=== PATIENT | female | born 1975 | race Caucasian/White ===

== ENCOUNTER 2020-03-22 12:00 | Inpatient (IN) | payer MEDICAID ==
[~2020-03-22] VITALS: Ht 160 cm; Wt 65.8 kg
[2020-03-22 12:43] VITALS: Ht 160 cm; Wt 65.8 kg
[2020-03-22 14:40] LABS: ALKALINE PHOSPHATASE 81 U/L (46-116); ALT/SGPT 18 U/L (14-59); AST/SGOT 23 U/L (15-37); BILIRUBIN TOTAL 0.4 mg/dL (0.20-1.00); CALCIUM 8.4 mg/dL (8.5-10.1); CARBON DIOXIDE 28.2 mmol/L (21-32); CHLORIDE SERUM 99 mmol/L (98-107); CREATININE SERUM 0.7 mg/dL (0.6-1.0); GFR1 > 60 mL/min; GLUCOSE SERUM 327 mg/dL (74-106); SODIUM SERUM 136 mmol/L (136-145); TOTAL PROTEIN, SERUM 7.6 g/dL (6.4-8.2)
[2020-03-22 14:43] LABS: ALBUMIN 2.2 g/dL (3.4-5.0)
[2020-03-22 14:44] LABS: POTASSIUM SERUM 6.4 mmol/L (3.5-5.1)
[2020-03-22 15:01] LABS: BASOPHIL % 0.7 % (0.2-1.3); PLATELET COUNT 394 x10^3mcL (179-408)
[2020-03-22 15:27] LABS: RED CELL DISTRIBUTION WIDTH 14.8 % (12.3-17.7)
[2020-03-22 17:57] VITALS: BP 107/65
[2020-03-22 21:53] VITALS: BP 99/62
[2020-03-22 22:04] LABS: CALCIUM 7.8 mg/dL (8.5-10.1); CARBON DIOXIDE 22.5 mmol/L (21-32); CHLORIDE SERUM 102 mmol/L (98-107); CREATININE SERUM 0.5 mg/dL (0.6-1.0); GFR1 > 60 mL/min; GLUCOSE SERUM 288 mg/dL (74-106); POTASSIUM SERUM 4.1 mmol/L (3.5-5.1); SODIUM SERUM 136 mmol/L (136-145)
[2020-03-23 05:30] VITALS: BP 135/90
[2020-03-23 06:31] LABS: BASOPHIL % 0.2 % (0.2-1.3); RED CELL DISTRIBUTION WIDTH 14.4 % (12.3-17.7)
[2020-03-23 07:15] LABS: PLATELET COUNT 424 x10^3mcL (179-408)
[2020-03-23 08:00] LABS: CALCIUM 8.2 mg/dL (8.5-10.1); CARBON DIOXIDE 22.6 mmol/L (21-32); CHLORIDE SERUM 98 mmol/L (98-107); CREATININE SERUM 0.5 mg/dL (0.6-1.0); GFR1 > 60 mL/min; GLUCOSE SERUM 297 mg/dL (74-106); PHOSPHOROUS 3.1 mg/dL (2.5-4.9); POTASSIUM SERUM 4.5 mmol/L (3.5-5.1); SODIUM SERUM 131 mmol/L (136-145)
[2020-03-23 08:52] VITALS: BP 148/99
[2020-03-23 12:10] VITALS: BP 101/69
[2020-03-23 16:53] VITALS: BP 102/71
[2020-03-23 21:16] VITALS: BP 98/61
[2020-03-24 05:45] VITALS: BP 103/71
[2020-03-24 06:27] LABS: BASOPHIL % 0.8 % (0.2-1.3); CALCIUM 8.5 mg/dL (8.5-10.1); CHLORIDE SERUM 101 mmol/L (98-107); CREATININE SERUM 0.8 mg/dL (0.6-1.0); GFR1 > 60 mL/min; GLUCOSE SERUM 333 mg/dL (74-106); MAGNESIUM 1.7 mg/dL (1.8-2.4); PHOSPHOROUS 3.4 mg/dL (2.5-4.9); PLATELET COUNT 390 x10^3mcL (179-408); POTASSIUM SERUM 3.4 mmol/L (3.5-5.1); RED CELL DISTRIBUTION WIDTH 14.5 % (12.3-17.7); SODIUM SERUM 136 mmol/L (136-145)
[2020-03-24 09:00] VITALS: BP 101/66
[2020-03-24 13:00] VITALS: BP 110/78
[2020-03-24 16:54] VITALS: BP 90/57
[2020-03-24 22:05] VITALS: BP 106/76
[2020-03-25 06:52] VITALS: BP 100/67
[2020-03-25 07:43] LABS: BASOPHIL % 0.5 % (0.2-1.3)
[2020-03-25 08:04] LABS: CALCIUM 8.2 mg/dL (8.5-10.1); CARBON DIOXIDE 29.5 mmol/L (21-32); CHLORIDE SERUM 99 mmol/L (98-107); CREATININE SERUM 0.9 mg/dL (0.6-1.0); GFR1 > 60 mL/min; GLUCOSE SERUM 97 mg/dL (74-106); POTASSIUM SERUM 3.2 mmol/L (3.5-5.1); SODIUM SERUM 137 mmol/L (136-145)
[2020-03-25 08:25] VITALS: BP 109/78
[2020-03-25 10:45] LABS: PLATELET COUNT 423 x10^3mcL (179-408)
[2020-03-25 12:15] VITALS: BP 110/79
[2020-03-25] MEDS ORDERED: CIPRO500 MG PO (15:01)
== END 2020-03-25 16:46 | disposition home or self-care (01) | DRG 344 ==
LOC: ED 12:00 → DU 16:28
PROVIDERS: Emergency Medicine; Surgery; ADMIT Family Medicine; ATTEND Family Medicine
PROC: 0JBB0ZZ Excision of Perineum Subcutaneous Tissue and Fascia, Open Approach (ICD-10-PCS; 2020-03-22)
PROC: 0J990ZX Drainage of Buttock Subcutaneous Tissue and Fascia, Open Approach, Diagnostic (ICD-10-PCS; 2020-03-22)
PROC: 0JB90ZZ Excision of Buttock Subcutaneous Tissue and Fascia, Open Approach (ICD-10-PCS; principal; 2020-03-22 18:30)
DX: M72.6 Necrotizing fasciitis (principal); U07.1 COVID-19; J12.89 Other viral pneumonia; L02.31 Cutaneous abscess of buttock; L02.215 Cutaneous abscess of perineum; E11.65 Type 2 diabetes mellitus with hyperglycemia; E87.6 Hypokalemia; E87.5 Hyperkalemia
CPT/HCPCS: 82962; 90658; G0378; J0131; J1170; J1644; J1815; J2001; J2250; J2405; J2543; J3010; J3370; J3490; J3535; J7030; J7050; J7060; Q9967; U0003